=== PATIENT | female | born 1960 | race Two or more races ===

== ENCOUNTER 2023-03-11 09:20 | Day surgery (SDC) | payer OTHER ==
[2023-03-04 09:48] LABS: Urine Epithelial Cast None Seen /hpf (<5)
[2023-03-04 09:50] LABS: Basophils # (auto) 0 10 ^3/uL (0-0.2); Eosinophils # (auto) 0.1 10 ^3/uL (0-0.8); Eosinophils % (auto) 1.4 % (0.0-7.0); Hematocrit 43.5 % (36.0-46.0); Hemoglobin 13.7 g/dL (12.2-16.2); Lymphocytes % (auto) 21.3 % (10.0-50.0); Mean Corpuscular Hemoglobin 28.2 pg (28.0-32.0); Mean Corpuscular Hgb Conc. 31.5 g/dL (32.0-36.0); Mean Corpuscular Volume 89.8 fL (80.0-100.0); Monocytes # (auto) 0.3 10 ^3/uL (0-1.3); Monocytes % (auto) 5.2 % (0.0-12.0); Neutrophils # (auto) 3.5 10 ^3/uL (1.6-8.6); Neutrophils % (auto) 71.1 % (37.0-80.0); Nucleated Red Blood Cells % 0.1 %; Red Blood Cells 4.85 10^6/uL (4.0-5.20); White Blood Cell 4.9 10^3/uL (4.4-10.8)
[2023-03-04 09:54] LABS: Red Cell Distribution Width 23.7 % (11.8-14.3)
[2023-03-04 10:26] LABS: Alanine Aminotransferase 21 U/L (7-40); Albumin 4.8 g/dL (3.2-4.8); Alkaline Phosphatase 114 U/L (46-116); Anion Gap 5 (5-15); Aspartate Aminotransferase 20 U/L (13-40); BUN/Creatinine Ratio 23.9 (10.0-20.0); Blood Urea Nitrogen 21 mg/dL (9-23); Calcium 9.9 mg/dL (8.5-10.1); Carbon Dioxide 24 mmol/L (20-30); Chloride 110 mmol/L (98-107); Glucose 86 mg/dL (74-106); Potassium 4.3 mmol/L (3.5-5.1); Sodium 139 mmol/L (136-145)
[2023-03-04 10:27] LABS: Bilirubin, Total 0.3 mg/dL (0.2-1.0); Total Protein 7.2 g/dL (5.7-8.2)
[2023-03-04 10:28] LABS: INR 0.95 (0.9-1.15)
[2023-03-04 10:38] LABS: Urine Bacteria FEW /hpf (None Seen); Urine Blood Negative /uL (Negative); Urine Clarity Clear (Clear); Urine Protein, UAD Negative (Negative); Urine Specific Gravity 1.012 (1.001-1.035); Urine Urobilinogen Normal (Negative); Urine WBC 2 /hpf (0 - 5); Urine pH 6.5 (5.0-8.0)
[2023-03-04 10:39] LABS: Urine Color Yellow (Yellow)
[2023-03-04 12:55] LABS: Anisocytosis Moderate; Hypochromia Slight; Platelet Estimate Adequate
[~2023-03-11] VITALS: Ht 177.8 cm; Wt 99.8 kg
[~2023-03-11 09:20] MED LIST: ASPI81CH59 PO; CHOLCAP12 PO; DIPH1TAB30 PO; FER325T PO; FOLI-119 PO; MAGN250T3 PO; METH2.5T PO; SERT-160 PO; TOPI25TA84 PO
[2023-03-11] MEDS ORDERED: LIDOCAINE 1% INJ PF 5ML AMP ONE (10:10)
[2023-03-11] MEDS ORDERED: PROPOFOL 10 MG/ML 20 ML IV ONE ×2 (10:10→10:19)
[2023-03-11 10:30] VITALS: TEMP 98.1; O2SAT 98
[2023-03-11 10:58] VITALS: BP 100/79; PULSE 64; RESP 13; O2SAT 100
== END 2023-03-11 11:00 | disposition home or self-care (01) ==
LOC: GI 09:20
PROVIDERS: ATTEND Internal Medicine Gastroenterology
DX: R19.5 Other fecal abnormalities (principal); R63.4 Abnormal weight loss; D64.9 Anemia, unspecified; Z98.890 Other specified postprocedural states; K57.30 Diverticulosis of large intestine without perforation or abscess without bleeding; K64.8 Other hemorrhoids
CPT/HCPCS: 36415; 45378; 80053; 81001; 85025; 85610; 85730; J2704; J7030